=== PATIENT | male | born 1970 | race Two or more races ===

== ENCOUNTER 2019-03-29 12:50 | Emergency (ER) | payer MEDICAID ==
[~2019-03-29] VITALS: Ht 172.7 cm; Wt 111.6 kg
[2019-03-29 13:12] VITALS: Ht 172.7 cm; Wt 111.6 kg
[2019-03-29 14:35] VITALS: BP 164/97
== END 2019-03-29 14:35 | disposition home or self-care (01) ==
LOC: ED 12:50
DX: F10.239 Alcohol dependence with withdrawal, unspecified (principal); G47.00 Insomnia, unspecified; Y90.9 Presence of alcohol in blood, level not specified
CPT/HCPCS: 82962